=== PATIENT | male | born 1980 | race Caucasian/White ===

== ENCOUNTER 2022-05-06 13:42 | Emergency (ER) | payer MEDICAID ==
[~2022-05-06] VITALS: Ht 175.3 cm; Wt 67.6 kg
[2022-05-06] MEDS ORDERED: CYCL10TA9 PO (16:05)
[2022-05-06] MEDS ORDERED: IBUP-1955 PO (16:05)
--- NOTE | 2022-05-06 16:14 | NUR ---
Patient discharged to home in stable condition. Written and verbal after care instructions given. Patient verbalizes understanding of instruction.
[2022-05-06 16:15] VITALS: BP 131/76
== END 2022-05-06 16:15 | disposition home or self-care (01) ==
LOC: ER 13:48
DX: S33.5XXA Sprain of ligaments of lumbar spine, initial encounter (principal); S00.83XA Contusion of other part of head, initial encounter; S20.211A Contusion of right front wall of thorax, initial encounter; V32.5XXA Driver of three-wheeled motor vehicle injured in collision with two- or three-wheeled motor vehicle in traffic accident, initial encounter; Y93.89 Activity, other specified; Y92.89 Other specified places as the place of occurrence of the external cause; Y99.8 Other external cause status
CPT/HCPCS: 71100-TC; 72110-TC

== ENCOUNTER 2025-04-24 09:39 | Emergency (ER) | payer MEDICAID ==
[~2025-04-24] VITALS: Ht 170.2 cm; Wt 81.2 kg
[~2025-04-24 09:39] MED LIST: CYCL10TA9 PO; IBUP-1955 PO
[2025-04-24 10:16] LABS: RED BLOOD CELL COUNT(AUTO) 5.52 MIL/uL (4.5-6.0); RED CELL DISTRIBUTION WIDTH 13.6 % (11.5-15.0); WHITE BLOOD COUNT (AUTO) 14.6 K/uL (4.3-11.0)
[2025-04-24 10:29] LABS: PLATELET COUNT (AUTO) 188 K/uL (150-450)
[2025-04-24 10:51] LABS: ASPARTATE AMINOTRANSFERASE 27.0 U/L (15-37); CALCIUM, SERUM 9.1 mg/dL (8.5-10.1); CREATININE 0.7 mg/dL (0.6-1.3); SODIUM SERUM 136.0 mmol/L (136-145); TOTAL PROTEIN, SERUM 7.9 g/dL (6.4-8.2); UREA NITROGEN, BLOOD 14.0 mg/dL (7-18)
[2025-04-24] MEDS ORDERED: AZIT250T13 PO (11:06)
[2025-04-24 11:17] VITALS: BP 132/94; TEMP 98.8; O2SAT 97
== END 2025-04-24 11:18 | disposition home or self-care (01) ==
LOC: ER 09:44
DX: R05.9 Cough, unspecified (principal); D72.829 Elevated white blood cell count, unspecified; F17.200 Nicotine dependence, unspecified, uncomplicated; R00.2 Palpitations; Z79.1 Long term (current) use of non-steroidal anti-inflammatories (NSAID)
CPT/HCPCS: 36415; 71045-TC; 80053-TC; 84484-TC; 85025-TC